=== PATIENT | female | born 2000 | race Caucasian/White ===

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

== ENCOUNTER 2020-11-20 11:48 | Emergency (ER) | payer OTHER, SELFPAY ==
[2020-11-20 11:50] VITALS: BP 131/73; PULSE 94; RESP 17; TEMP 36.9; O2SAT 96; BMI 32.5
--- NOTE | 2020-11-20 12:03 | VDLE_ITS ---
Reason For Study: Pain Procedure LEFT This is a venous duplex using B-mode, color GSV is normal. flow and spectral Doppler. CFV is compressible, spontaneous, phasic, Exam performed portable in ED. competent, and demonstrates normal A preliminary report was called and/or faxed augmentation. to [facility]. FV is compressible, spontaneous, phasic, competent and demonstrates normal augmentation. POP V is compressible, spontaneous, phasic, competent and demonstrates normal augmentation. T/P Trunk is compressible. PTV is compressible. LT PerV is compressible. Interpretation Summary There is no evidence of left lower extremity deep vein thrombosis. Left great saphenous vein appears patent and compressible segmentally. Ordering Physician: Morena Fitch Performed By: Katie Bran RVT
--- NOTE | 2020-11-20 12:42 | ED.DCSUM_ITS ---
- ER Visit Summary Date of Service: 11/20/20 Chief Complaint: [Left leg pain with concern for DVT] History of Present Illness: The patient is a 20 F [presents to the emergency department complaint of left leg pain for a couple of days. Patient states that her doctor thinks she might have a blood clot in her leg. Patient denies any recent trauma to her leg although she did have trauma to her foot in July 2020 where she stepped on a thorn. Patient states that eventually the thorn worked its way out through the top of her foot but actually it entered the bottom of her foot at the time of initial injury. Patient states that the thorn exited in August. Patient's had discomfort to her foot ever since that time. Patient denies any chest pain or shortness of breath. She denies hemoptysis.] Patient feels like her left leg is more swollen than her right leg. Physical Examination: [HEENT-PERRLA, EOMI. Cranial nerves II through XII grossly intact. TMs clear. Mucous membranes moist. No adenopathy. Cardiovascular-regular rate and rhythm without murmur or ectopy Lungs-clear to auscultation, chest wall stable without crepitus or subcu emphysema Abdomen-normoactive bowel sounds, soft, nontender, no rebound or rigidity, no peritoneal signs. Extremities-intact ?4, normal range of motion, normal pulses, atraumatic. Left leg-there is no evidence of trauma such as ecchymosis or bruising. Patient does have discomfort to the left calf on palpation. No ropes or cords palpated. I do not appreciate any edema. There is no cellulitic changes noted to the skin.] Test Results: [Venous duplex of the left lower extremity obtained was negative for DVT] Emergency Department Course and Treatment: Patient refused crutches. [] Treatment Plan: [She will be referred to podiatry if her left foot pain persists. At this point I will feel any further imaging is indicated as she has had no recent trauma.] Disposition: [Discharged home in stable condition] Impression: [Left leg pain-etiology uncertain] This note was generated with [employer] dictation software. It may contain incorrect words, spelling, and punctuation that were not noted in review of the chart prior to signing ED Disposition - Plan for ED Patient: Referrals: [facility] Doctor,Out of [Primary Care Provider] -
--- NOTE | 2020-11-20 12:47 | DCINST.ED_ITS ---
ED Disposition - Plan for ED Patient: Instructions: ED Muscle Strain, Extremity Referrals: [facility] Doctor,Out of [Primary Care Provider] - Nelson Meyers DPM [STAFF PHYSICIAN] - 3-5 Days
== END 2020-11-20 13:24 | disposition home or self-care (01) ==
PROVIDERS: Emergency Provider Emergency Medicine
DX: M79.605 Pain in left leg (principal)
CPT/HCPCS: 93971; 99282